=== PATIENT | male | born 1940 | race Caucasian/White ===

== ENCOUNTER 2020-08-01 16:14 | Inpatient (IN) | payer MEDICARE ==
[~2020-08-01] VITALS: Ht 182.9 cm; Wt 100.9 kg
[~2020-08-01 16:14] MED LIST: AMLODIPINE BES2.5 MG PO; ASPIRIN EC81 MG PO; BYDUREON P2 MG/0.65 SQ; ELIQUIS5 MG PO; HYDROCHLOROTH12.5 MG PO; INVOKANA100 MG PO; ISORDIL TAB 3030 MG PO; LEVEMIR100 UNIT/1 SQ; LIPITOR TAB 2020 MG PO; LOPRESSOR100 MG PO; MULTAQ400 MG PO; ORENCIA 250 MG250 MG INJ; PRESERVISION A1 EACH PO; VITAMIN B12-FO1 EACH PO; VITAMIN D3100 MCG PO; ZYLOPRIM300 MG PO
[2020-08-01 17:52] LABS: RED BLOOD COUNT 4.14 M/UL (4.20-5.50); WHITE BLOOD COUNT 14.2 K/UL (4.5-11.0)
[2020-08-01] MEDS ORDERED: LISINOPRIL2.5 MG PO (19:40)
[2020-08-01] MEDS ORDERED: ISOSORBIDE MONO30 MG PO (19:42)
[2020-08-01] MEDS ORDERED: AMLODIPINE BESYL5 MG PO (19:43)
[2020-08-01] MEDS ORDERED: GLIMEPIRIDE4 MG PO (19:44)
[2020-08-02 03:48] LABS: HEMOGLOBIN 10.1 gm/dl (14.0-17.5); RED BLOOD COUNT 3.93 M/UL (4.20-5.50)
[2020-08-02 03:49] LABS: WHITE BLOOD COUNT 10.5 K/UL (4.5-11.0)
[2020-08-03 03:05] LABS: HEMOGLOBIN 9.1 gm/dl (14.0-17.5); RED BLOOD COUNT 3.64 M/UL (4.20-5.50)
[2020-08-03 03:07] LABS: WHITE BLOOD COUNT 7.6 K/UL (4.5-11.0)
[2020-08-03] MEDS ORDERED: LASIX20 MG PO (09:32)
== END 2020-08-03 11:25 | disposition home or self-care (01) | DRG 291 ==
LOC: ER1 16:14 → CDU 19:06 → MED SURG 4 19:06
PROVIDERS: Internal Medicine; Preventive Medicine Occupational Medicine; ADMIT Family Medicine
DX: I13.0 Hypertensive heart and chronic kidney disease with heart failure and stage 1 through stage 4 chronic kidney disease, or unspecified chronic kidney disease (principal); J96.01 Acute respiratory failure with hypoxia; I50.23 Acute on chronic systolic (congestive) heart failure; L03.116 Cellulitis of left lower limb; L03.115 Cellulitis of right lower limb; E11.22 Type 2 diabetes mellitus with diabetic chronic kidney disease; I25.10 Atherosclerotic heart disease of native coronary artery without angina pectoris; Z20.822 Contact with and (suspected) exposure to COVID-19; N40.0 Benign prostatic hyperplasia without lower urinary tract symptoms; I48.0 Paroxysmal atrial fibrillation; I42.9 Cardiomyopathy, unspecified; N18.30 Chronic kidney disease, stage 3 unspecified; M06.9 Rheumatoid arthritis, unspecified; I87.8 Other specified disorders of veins; Z95.1 Presence of aortocoronary bypass graft; Z79.01 Long term (current) use of anticoagulants; Z79.82 Long term (current) use of aspirin; Z79.4 Long term (current) use of insulin
CPT/HCPCS: 36415; 36600; 71045; 80048; 80053; 81001; 82550; 82553; 82803; 82962; 83874; 83880; 84484; 85025; 85610; 85652; 85730; 86140; 87086; 93005; 94664; 94760; 99285; J0696; J1940; J7030; U0002

== ENCOUNTER 2020-08-20 07:53 | Emergency (ER) | payer MEDICARE ==
[~2020-08-20 07:53] MED LIST changes: +AMLODIPINE BESYL5 MG PO; +GLIMEPIRIDE4 MG PO; +ISOSORBIDE MONO30 MG PO; +LASIX20 MG PO; +LISINOPRIL2.5 MG PO
[2020-08-20 08:45] LABS: RED BLOOD COUNT 3.87 M/UL (4.20-5.50); WHITE BLOOD COUNT 8.7 K/UL (4.5-11.0)
[2020-08-20 09:08] LABS: BUN/CREATININE RATIO 32 (0-10)
[2020-08-20] MEDS ORDERED: DOXYCYCLINE HY100 MG PO (13:38)
== END 2020-08-20 14:56 | disposition home or self-care (01) ==
LOC: ER1 07:53
PROVIDERS: Physician Assistant
DX: S09.90XA Unspecified injury of head, initial encounter (principal); S30.0XXA Contusion of lower back and pelvis, initial encounter; E11.649 Type 2 diabetes mellitus with hypoglycemia without coma; I13.0 Hypertensive heart and chronic kidney disease with heart failure and stage 1 through stage 4 chronic kidney disease, or unspecified chronic kidney disease; E11.22 Type 2 diabetes mellitus with diabetic chronic kidney disease; N18.9 Chronic kidney disease, unspecified; I50.9 Heart failure, unspecified; I48.91 Unspecified atrial fibrillation; Z95.1 Presence of aortocoronary bypass graft; W19.XXXA Unspecified fall, initial encounter
CPT/HCPCS: 70450; 71045; 72100; 72220; 80053; 81001; 82550; 82553; 82962; 83690; 83874; 83880; 84484; 85025; 93005; 96374; 96375; 99285; J1940

== ENCOUNTER → 2020-09-21 | Outpatient (CLI) | payer MEDICARE ==
[~2020-09-21] MED LIST changes: +DOXYCYCLINE HY100 MG PO
== END ==
LOC: LAB 08:36
PROVIDERS: Internal Medicine Nephrology
DX: N17.9 Acute kidney failure, unspecified (principal)
CPT/HCPCS: 36415; 80048

== ENCOUNTER → 2020-10-01 | Outpatient (CLI) | payer MEDICARE ==
[~2020-10-01] VITALS: Ht 182.9 cm; Wt 102.5 kg
== END ==
LOC: OPSV 10:00
DX: D50.9 Iron deficiency anemia, unspecified (principal)
CPT/HCPCS: 96365; J1439; J7030

== ENCOUNTER 2021-03-22 10:48 | Emergency (ER) | payer MEDICARE ==
[2021-03-22 12:04] LABS: HEMOGLOBIN 10.4 gm/dl (14.0-17.5); RED BLOOD COUNT 3.97 M/UL (4.20-5.50); WHITE BLOOD COUNT 8.1 K/UL (4.5-11.0)
[2021-03-22 12:53] LABS: BUN/CREATININE RATIO 32 (0-10)
[2021-03-22] MEDS ORDERED: CEFDINIR300 MG PO (14:17)
== END 2021-03-22 16:20 | disposition home or self-care (01) ==
LOC: ER1 10:48
PROVIDERS: Physician Assistant
DX: I13.0 Hypertensive heart and chronic kidney disease with heart failure and stage 1 through stage 4 chronic kidney disease, or unspecified chronic kidney disease (principal); I50.9 Heart failure, unspecified; J18.9 Pneumonia, unspecified organism; R05.9 Cough, unspecified; N18.9 Chronic kidney disease, unspecified; E11.22 Type 2 diabetes mellitus with diabetic chronic kidney disease; Z20.822 Contact with and (suspected) exposure to COVID-19; R60.0 Localized edema; Z79.01 Long term (current) use of anticoagulants
CPT/HCPCS: 71045; 80053; 81001; 82550; 82553; 83605; 83874; 83880; 84484; 85025; 87040; 93005; 96374; 96375; 99285; J0456; J0696; J1940; J7030; U0002

== ENCOUNTER 2021-04-09 08:31 | Inpatient (IN) | payer MEDICARE ==
[~2021-04-09] VITALS: Ht 180.3 cm; Wt 108.0 kg
[~2021-04-09 08:31] MED LIST changes: +CEFDINIR300 MG PO; +LEVEMIR FL100 UNIT/1 SQ; -LEVEMIR100 UNIT/1 SQ; -ORENCIA 250 MG250 MG INJ; +ORENCIA125 MG/1 M SQ; +VITAMIN B-121000 MCG PO; -VITAMIN B12-FO1 EACH PO
[2021-04-09 09:43] LABS: HEMOGLOBIN 10.4 gm/dl (14.0-17.5); RED BLOOD COUNT 4.14 M/UL (4.20-5.50); WHITE BLOOD COUNT 8.7 K/UL (4.5-11.0)
[2021-04-09] MEDS ORDERED: FUROSEMIDE40 MG PO (13:30)
[2021-04-09] MEDS ORDERED: NORVASC5 MG PO (13:32)
[2021-04-09] MEDS ORDERED: FERROUS SULFAT324 MG PO (13:32)
[2021-04-09] MEDS ORDERED: CARVEDILOL25 MG PO (13:32)
[2021-04-09] MEDS ORDERED: SPIRONOLACTONE25 MG PO (13:33)
[2021-04-09] MEDS ORDERED: EFUDEX 5% CREAM40 GM TOP (13:33)
[2021-04-09] MEDS ORDERED: NITROGLYCERIN0.4 MG SL (13:34)
[2021-04-10 05:16] LABS: HEMOGLOBIN 9.5 gm/dl (14.0-17.5); RED BLOOD COUNT 3.86 M/UL (4.20-5.50); WHITE BLOOD COUNT 6.9 K/UL (4.5-11.0)
--- NOTE | 2021-04-10 11:08 | NUR ---
PATIENT OXYGEN SAT 88% ON ROOM AIR.
== END 2021-04-12 13:39 | disposition home or self-care (01) | DRG 291 ==
LOC: ER1 08:31 → MED SURG 4 12:06 → 3 EAST 12:06 → CDU 12:06 → 3 EAST 14:38 → MED SURG 4 04-10 14:54
PROVIDERS: Internal Medicine Infectious Disease; Physician Assistant Medical; ADMIT Family Medicine
DX: I13.0 Hypertensive heart and chronic kidney disease with heart failure and stage 1 through stage 4 chronic kidney disease, or unspecified chronic kidney disease (principal); I50.23 Acute on chronic systolic (congestive) heart failure; Z20.822 Contact with and (suspected) exposure to COVID-19; J96.01 Acute respiratory failure with hypoxia; N18.4 Chronic kidney disease, stage 4 (severe); I25.10 Atherosclerotic heart disease of native coronary artery without angina pectoris; C44.90 Unspecified malignant neoplasm of skin, unspecified; E78.5 Hyperlipidemia, unspecified; E11.22 Type 2 diabetes mellitus with diabetic chronic kidney disease; M10.9 Gout, unspecified; I48.91 Unspecified atrial fibrillation; M06.9 Rheumatoid arthritis, unspecified; R04.0 Epistaxis; E66.9 Obesity, unspecified; G89.29 Other chronic pain; E11.9 Type 2 diabetes mellitus without complications; Z79.4 Long term (current) use of insulin; Z79.01 Long term (current) use of anticoagulants; Z83.3 Family history of diabetes mellitus; Z82.3 Family history of stroke; Z80.9 Family history of malignant neoplasm, unspecified; Z83.6 Family history of other diseases of the respiratory system; Z82.49 Family history of ischemic heart disease and other diseases of the circulatory system
CPT/HCPCS: 36415; 36600; 71045; 71046; 80048; 80053; 82550; 82553; 82803; 82962; 83605; 83874; 83880; 84484; 85025; 85027; 93005; 96372; 99285; J1940; U0002

== ENCOUNTER 2021-04-17 09:38 | Inpatient (IN) | payer MEDICARE ==
[~2021-04-17] VITALS: Ht 182.9 cm; Wt 104.3 kg
[~2021-04-17 09:38] MED LIST changes: +CARVEDILOL25 MG PO; +EFUDEX 5% CREAM40 GM TOP; +FERROUS SULFAT324 MG PO; +FUROSEMIDE40 MG PO; +NITROGLYCERIN0.4 MG SL; +NORVASC5 MG PO; +SPIRONOLACTONE25 MG PO
[2021-04-17 10:12] LABS: RED BLOOD COUNT 3.75 M/UL (4.20-5.50); WHITE BLOOD COUNT 5.1 K/UL (4.5-11.0)
[2021-04-18 05:27] LABS: HEMOGLOBIN 7.4 gm/dl (14.0-17.5)
[2021-04-18 05:29] LABS: RED BLOOD COUNT 3.18 M/UL (4.20-5.50); WHITE BLOOD COUNT 9.3 K/UL (4.5-11.0)
[2021-04-18 15:56] LABS: RED BLOOD COUNT 2.95 M/UL (4.20-5.50); WHITE BLOOD COUNT 9.8 K/UL (4.5-11.0)
[2021-04-18 15:59] LABS: HEMOGLOBIN 6.9 gm/dl (14.0-17.5)
[2021-04-19 05:09] LABS: HEMOGLOBIN 7.1 gm/dl (14.0-17.5); RED BLOOD COUNT 3.02 M/UL (4.20-5.50); WHITE BLOOD COUNT 10.9 K/UL (4.5-11.0)
[2021-04-20 05:05] LABS: HEMOGLOBIN 7.3 gm/dl (14.0-17.5); RED BLOOD COUNT 2.95 M/UL (4.20-5.50); WHITE BLOOD COUNT 11.7 K/UL (4.5-11.0)
[2021-04-20 06:10] LABS: HBSAG SCREEN Negative (Negative); HEP A AB, IGM Negative (Negative); HEP B CORE AB, IGM Negative (Negative); HEP C VIRUS AB <0.1 (0.0-0.9)
[2021-04-20 07:25] LABS: URINE CREATININE 33.3 mg/dL
== END 2021-04-21 03:09 | disposition expired | DRG 291 ==
LOC: ER1 09:38 → CCU 14:57 → CDU 14:57 → CCU 16:59
PROVIDERS: Emergency Medicine; Family Medicine; Internal Medicine Nephrology; Internal Medicine Pulmonary Disease; Physician Assistant; ADMIT Internal Medicine
PROC: 5A09357 Assistance with Respiratory Ventilation, Less than 24 Consecutive Hours, Continuous Positive Airway Pressure (ICD-10-PCS; 2021-04-17)
PROC: 5A0945A Assistance with Respiratory Ventilation, 24-96 Consecutive Hours, High Flow/Velocity Cannula (ICD-10-PCS; 2021-04-18)
PROC: 02HV33Z Insertion of Infusion Device into Superior Vena Cava, Percutaneous Approach (ICD-10-PCS; 2021-04-18)
PROC: B548ZZA Ultrasonography of Superior Vena Cava, Guidance (ICD-10-PCS; 2021-04-18)
PROC: 30233N1 Transfusion of Nonautologous Red Blood Cells into Peripheral Vein, Percutaneous Approach (ICD-10-PCS; 2021-04-18)
PROC: 0DH67UZ Insertion of Feeding Device into Stomach, Via Natural or Artificial Opening (ICD-10-PCS; 2021-04-18)
PROC: 3E0G76Z Introduction of Nutritional Substance into Upper GI, Via Natural or Artificial Opening (ICD-10-PCS; 2021-04-18)
PROC: 3E033XZ Introduction of Vasopressor into Peripheral Vein, Percutaneous Approach (ICD-10-PCS; principal; 2021-04-19)
DX: I13.0 Hypertensive heart and chronic kidney disease with heart failure and stage 1 through stage 4 chronic kidney disease, or unspecified chronic kidney disease (principal); I50.23 Acute on chronic systolic (congestive) heart failure; J96.02 Acute respiratory failure with hypercapnia; Z20.822 Contact with and (suspected) exposure to COVID-19; Z51.5 Encounter for palliative care; J96.01 Acute respiratory failure with hypoxia; G93.41 Metabolic encephalopathy; R57.0 Cardiogenic shock; D62 Acute posthemorrhagic anemia; N17.9 Acute kidney failure, unspecified; E87.4 Mixed disorder of acid-base balance; N18.30 Chronic kidney disease, stage 3 unspecified; E87.5 Hyperkalemia; D63.1 Anemia in chronic kidney disease; D69.6 Thrombocytopenia, unspecified; R00.1 Bradycardia, unspecified; I34.0 Nonrheumatic mitral (valve) insufficiency; E11.22 Type 2 diabetes mellitus with diabetic chronic kidney disease; E66.9 Obesity, unspecified; M10.9 Gout, unspecified; E78.5 Hyperlipidemia, unspecified; M06.9 Rheumatoid arthritis, unspecified; I25.10 Atherosclerotic heart disease of native coronary artery without angina pectoris; T68.XXXA Hypothermia, initial encounter; E11.649 Type 2 diabetes mellitus with hypoglycemia without coma; I48.0 Paroxysmal atrial fibrillation; Z79.01 Long term (current) use of anticoagulants; Z95.1 Presence of aortocoronary bypass graft; Z85.828 Personal history of other malignant neoplasm of skin; Z79.4 Long term (current) use of insulin; Z98.890 Other specified postprocedural states; Z82.49 Family history of ischemic heart disease and other diseases of the circulatory system; Z83.3 Family history of diabetes mellitus; Z82.5 Family history of asthma and other chronic lower respiratory diseases; Z87.442 Personal history of urinary calculi; Z68.31 Body mass index [BMI] 31.0-31.9, adult
CPT/HCPCS: 36415; 36430; 36600; 71045; 74018; 80048; 80053; 80074; 80202; 81001; 82140; 82550; 82553; 82565; 82570; 82575; 82607; 82728; 82746; 82803; 82962; 83540; 83550; 83605; 83735; 83880; 84100; 84484; 85025; 85027; 85610; 86850; 86900; 86901; 86920; 87040; 87086; 87205; 93005; 94640; 94660; 94664; 94760; 96374; 96375; 96376; 99285; C1751; J0461; J0610; J0692; J1250; J1940; J2270; J3370; J7030; J7040; J7070; P9016; U0002